=== PATIENT | male | born 1995 | race Hispanic/Latino ===

== ENCOUNTER 2022-01-19 09:14 | Inpatient (IN) | payer BC ==
[2022-01-19] MEDS ORDERED: Dexamethasone 10 MG/ML VIAL SLOW IVP SCH ×2 (11:00→11:30)
[2022-01-19] MEDS ORDERED: PALONOSETRON HCL 0.05 MG/ML 5 ML VIAL IVP SCH (11:00)
[2022-01-19] MEDS ORDERED: CISPLATIN IV SCH (11:15)
[2022-01-19] MEDS ORDERED: ETOPOSIDE IVPB SCH (11:15)
[2022-01-19] MEDS ORDERED: IFOSFAMIDE IVPB SCH (11:15)
[2022-01-19] MEDS ORDERED: SODIUM CHLORIDE 0.9% IV SCH (11:15)
[2022-01-19] MEDS ORDERED: SODIUM CHLORIDE 0.9% IVPB SCH ×4 (11:15→12:00)
[2022-01-19] MEDS ORDERED: MESNA IVPB SCH ×2 (11:15→12:00)
[2022-01-19] MEDS ORDERED: MANNITOL IV SCH (11:15)
[2022-01-19] MEDS ORDERED: Acetaminophen 650 MG Suppository PR PRN (11:16)
[2022-01-19] MEDS ORDERED: Ondansetron PF 4 MG/2 ML Vial IVP PRN (11:16)
[2022-01-19] MEDS ORDERED: Ondansetron ODT 4 MG TAB PO PRN (11:16)
[2022-01-19] MEDS ORDERED: Acetaminophen 325 MG TAB PO PRN (11:16)
[2022-01-19] MEDS ORDERED: Morphine 4 MG/ML VIAL SLOW IVP PRN (11:18)
[2022-01-19 11:25] VITALS: BMI 25.4
[2022-01-19] MEDS ORDERED: PEGFILGRASTIM-JMDB 6 MG/0.6 ML SYRINGE SQ SCH (11:30)
[2022-01-19] MEDS ORDERED: Ondansetron PF 4 MG/2 ML Vial IVP SCH ×2 (11:30)
[2022-01-19] MEDS ORDERED: Dexamethasone Sod Phosphate 20 MG in Sodium Chloride 0.9% 50 ML IVPB SCH (11:45)
[2022-01-19 12:04] LABS: #Eosinphils 0.1 thou/uL (0.0-0.7); #Lymphocytes 1.4 thou/uL (1.20-3.40); #Monocytes 0.1 thou/uL (0.11-0.59); #Neutrophils 10.3 thou/uL (1.40-6.50); %Basophils 0.1 % (0.0-1.0); %Eosinophils 1.1 % (0.0-10.0); %Lymphocytes 11.7 % (21.0-51.0); %Monocytes 0.8 % (0.0-10.0); %Neutrophils 86.3 % (42.0-75.0); Hemoglobin 13.7 g/dL (14.0-18.0); Mean Corpuscular HGB CONC 32.3 g/dL (32.0-36.0); Mean Corpuscular Hemoglobin 30.3 pg (27.0-31.0); Mean Corpuscular Volume 93.9 fL (78.0-98.0); Mean Platelet Volume 7.8 fL (7.4-10.4); Platelet Count 212 thou/uL (130-400); RBC Distribution Width 16.5 % (11.5-14.5); Red Blood Cell (RBC) Count 4.53 mill/uL (4.70-6.10); White Blood Cell (WBC) Count 11.9 thou/uL (4.8-10.8)
[2022-01-19 12:19] LABS: Anion Gap 13 mmol/L (10-20); BUN (Urea Nitrogen) 11 mg/dL (8.9-20.6); Calc. Creatinine Clearance 177 mL/min (70-130); Calcium 9.2 mg/dL (7.8-10.44); Carbon Dioxide 22 mmol/L (22-29); Glucose 157 mg/dL (70-105); Sodium 136 mmol/L (136-145)
[2022-01-19 12:20] LABS: Chloride 105 mmol/L (98-107)
[2022-01-19] MEDS: SODIUM CHLORIDE 0.9% IV SCH (14:55)
[2022-01-19] MEDS: MANNITOL IV SCH (14:55)
[2022-01-19] MEDS: CISPLATIN IV SCH (14:55)
[2022-01-19] MEDS: SODIUM CHLORIDE 0.9% IVPB SCH ×2 (16:26→17:35)
[2022-01-19] MEDS: ETOPOSIDE IVPB SCH (16:26)
[2022-01-19] MEDS: MESNA IVPB SCH (17:35)
[2022-01-19] MEDS: IFOSFAMIDE IVPB SCH (17:35)
[2022-01-20] MEDS: SODIUM CHLORIDE 0.9% IVPB SCH ×5 (00:02→23:25)
[2022-01-20] MEDS: MESNA IVPB SCH ×4 (00:02→23:25)
[2022-01-20 07:05] LABS: ALT (SGPT) 26 U/L (8-55); AST (SGOT) 10 U/L (5-34); Albumin 3.6 g/dL (3.5-5.0); Alkaline Phosphatase 93 U/L (40-110); Anion Gap 11 mmol/L (10-20); BUN (Urea Nitrogen) 10 mg/dL (8.9-20.6); Bilirubin, Total 0.7 mg/dL (0.2-1.2); Calc. Creatinine Clearance 184 mL/min (70-130); Calcium 8.4 mg/dL (7.8-10.44); Carbon Dioxide 24 mmol/L (22-29); Chloride 107 mmol/L (98-107); Globulin 2.8 g/dL (2.4-3.5); Glucose 122 mg/dL (70-105); Potassium 3.8 mmol/L (3.5-5.1); Protein, Total 6.4 g/dL (6.0-8.3); Sodium 138 mmol/L (136-145)
[2022-01-20 10:58] LABS: Hemoglobin 13.7 g/dL (14.0-18.0); Mean Corpuscular HGB CONC 32.6 g/dL (32.0-36.0); Mean Corpuscular Hemoglobin 30.6 pg (27.0-31.0); Mean Corpuscular Volume 94.1 fL (78.0-98.0); Mean Platelet Volume 7.8 fL (7.4-10.4); Platelet Count 241 thou/uL (130-400); RBC Distribution Width 16.6 % (11.5-14.5); Red Blood Cell (RBC) Count 4.46 mill/uL (4.70-6.10); White Blood Cell (WBC) Count 22.2 thou/uL (4.8-10.8)
[2022-01-20 11:12] LABS: Anion Gap 12 mmol/L (10-20); BUN (Urea Nitrogen) 10 mg/dL (8.9-20.6); Calc. Creatinine Clearance 189 mL/min (70-130); Calcium 8.7 mg/dL (7.8-10.44); Carbon Dioxide 24 mmol/L (22-29); Chloride 106 mmol/L (98-107); Glucose 111 mg/dL (70-105); Potassium 3.9 mmol/L (3.5-5.1); Sodium 138 mmol/L (136-145)
[2022-01-20 11:28] LABS: Band 2 % (5-11); Lymphocytes 5 % (21-51); MDiff Complete? YES; Monocytes 3 % (0-10); Neutrophil 90 % (42-75); RBC Morphology Normal
[2022-01-20] MEDS ORDERED: ETOPOSIDE IVPB SCH (12:00)
[2022-01-20] MEDS ORDERED: CISPLATIN IV SCH (12:00)
[2022-01-20] MEDS ORDERED: SODIUM CHLORIDE 0.9% IVPB SCH (12:00)
[2022-01-20] MEDS ORDERED: SODIUM CHLORIDE 0.9% IV SCH (12:00)
[2022-01-20] MEDS ORDERED: MANNITOL IV SCH (12:00)
[2022-01-20] MEDS: Dexamethasone Sod Phosphate 20 MG, Ondansetron 2MG/ML MDV 10 MG in Sodium Chloride 0.9%... IVPB SCH (12:05)
[2022-01-20] MEDS: MANNITOL IV SCH (13:03)
[2022-01-20] MEDS: CISPLATIN IV SCH (13:03)
[2022-01-20] MEDS: SODIUM CHLORIDE 0.9% IV SCH (13:03)
[2022-01-20] MEDS: ETOPOSIDE IVPB SCH (14:43)
[2022-01-20] MEDS: IFOSFAMIDE IVPB SCH (16:52)
[2022-01-21] MEDS ORDERED: Ondansetron PF 4 MG/2 ML Vial IVP SCH (01:30)
[2022-01-21] MEDS: SODIUM CHLORIDE 0.9% IVPB SCH ×4 (03:27→22:51)
[2022-01-21] MEDS: MESNA IVPB SCH ×3 (03:27→22:51)
[2022-01-21 05:41] LABS: ALT (SGPT) 23 U/L (8-55); AST (SGOT) 9 U/L (5-34); Albumin 3.5 g/dL (3.5-5.0); Alkaline Phosphatase 96 U/L (40-110); Anion Gap 11 mmol/L (10-20); BUN (Urea Nitrogen) 11 mg/dL (8.9-20.6); Bilirubin, Total 0.5 mg/dL (0.2-1.2); Calc. Creatinine Clearance 184 mL/min (70-130); Calcium 8.2 mg/dL (7.8-10.44); Carbon Dioxide 24 mmol/L (22-29); Chloride 108 mmol/L (98-107); Globulin 2.5 g/dL (2.4-3.5); Glucose 123 mg/dL (70-105); Potassium 3.8 mmol/L (3.5-5.1); Sodium 139 mmol/L (136-145)
[2022-01-21] MEDS: Dexamethasone Sod Phosphate 20 MG, Ondansetron 2MG/ML MDV 10 MG in Sodium Chloride 0.9%... IVPB SCH (10:18)
[2022-01-21] MEDS: SODIUM CHLORIDE 0.9% IV SCH (11:00)
[2022-01-21] MEDS: CISPLATIN IV SCH (11:00)
[2022-01-21] MEDS: MANNITOL IV SCH (11:00)
[2022-01-21] MEDS ORDERED: SODIUM CHLORIDE 0.9% IVPB SCH (12:00)
[2022-01-21] MEDS ORDERED: SODIUM CHLORIDE 0.9% IV SCH (12:00)
[2022-01-21] MEDS ORDERED: ETOPOSIDE IVPB SCH (12:00)
[2022-01-21] MEDS ORDERED: MANNITOL IV SCH (12:00)
[2022-01-21] MEDS ORDERED: CISPLATIN IV SCH (12:00)
[2022-01-21] MEDS: ETOPOSIDE IVPB SCH (12:37)
[2022-01-21] MEDS: IFOSFAMIDE IVPB SCH (16:18)
[2022-01-22] MEDS: SODIUM CHLORIDE 0.9% IVPB SCH ×4 (02:54→21:34)
[2022-01-22] MEDS: MESNA IVPB SCH ×3 (02:54→21:34)
[2022-01-22 05:11] LABS: Anion Gap 5 mmol/L (10-20); BUN (Urea Nitrogen) 11 mg/dL (8.9-20.6); Calc. Creatinine Clearance 279 mL/min (70-130); Calcium 5.5 mg/dL (7.8-10.44); Carbon Dioxide 20 mmol/L (22-29); Chloride 118 mmol/L (98-107); Glucose 65 mg/dL (70-105); Potassium 2.5 mmol/L (3.5-5.1); Sodium 140 mmol/L (136-145)
[2022-01-22 05:17] LABS: #Lymphocytes 1.6 thou/uL (1.20-3.40); #Monocytes 1.1 thou/uL (0.11-0.59); #Neutrophils 6.3 thou/uL (1.40-6.50); %Basophils 0.1 % (0.0-1.0); %Eosinophils 0.1 % (0.0-10.0); %Lymphocytes 17.5 % (21.0-51.0); %Monocytes 11.7 % (0.0-10.0); %Neutrophils 70.6 % (42.0-75.0); Hemoglobin 10.8 g/dL (14.0-18.0); Mean Corpuscular HGB CONC 34.8 g/dL (32.0-36.0); Mean Corpuscular Hemoglobin 33.5 pg (27.0-31.0); Mean Corpuscular Volume 96.3 fL (78.0-98.0); Mean Platelet Volume 8.1 fL (7.4-10.4); Platelet Count 193 thou/uL (130-400); RBC Distribution Width 16.8 % (11.5-14.5); Red Blood Cell (RBC) Count 3.22 mill/uL (4.70-6.10)
[2022-01-22 06:07] LABS: #Neutrophils 7.5 thou/uL (1.40-6.50); %Basophils 0.2 % (0.0-1.0); %Eosinophils 0.1 % (0.0-10.0); %Lymphocytes 19.1 % (21.0-51.0); %Monocytes 9.8 % (0.0-10.0); %Neutrophils 70.8 % (42.0-75.0); Hemoglobin 13.7 g/dL (14.0-18.0); Mean Corpuscular HGB CONC 35.1 g/dL (32.0-36.0); Mean Corpuscular Hemoglobin 33.5 pg (27.0-31.0); Mean Corpuscular Volume 95.2 fL (78.0-98.0); Mean Platelet Volume 8.2 fL (7.4-10.4); Platelet Count 237 thou/uL (130-400); RBC Distribution Width 17.1 % (11.5-14.5); Red Blood Cell (RBC) Count 4.11 mill/uL (4.70-6.10); White Blood Cell (WBC) Count 10.5 thou/uL (4.8-10.8)
[2022-01-22 06:18] LABS: ALT (SGPT) 21 U/L (8-55); AST (SGOT) 11 U/L (5-34); Albumin 3.4 g/dL (3.5-5.0); Alkaline Phosphatase 84 U/L (40-110); Anion Gap 12 mmol/L (10-20); BUN (Urea Nitrogen) 15 mg/dL (8.9-20.6); Bilirubin, Total 0.6 mg/dL (0.2-1.2); Calc. Creatinine Clearance 177 mL/min (70-130); Calcium 8.3 mg/dL (7.8-10.44); Carbon Dioxide 23 mmol/L (22-29); Chloride 106 mmol/L (98-107); Globulin 2.4 g/dL (2.4-3.5); Glucose 87 mg/dL (70-105); Potassium 3.9 mmol/L (3.5-5.1); Protein, Total 5.8 g/dL (6.0-8.3); Sodium 137 mmol/L (136-145)
[2022-01-22] MEDS: Dexamethasone Sod Phosphate 20 MG, Ondansetron 2MG/ML MDV 10 MG in Sodium Chloride 0.9%... IVPB SCH (11:26)
[2022-01-22] MEDS ORDERED: MANNITOL IV SCH (12:00)
[2022-01-22] MEDS ORDERED: CISPLATIN IV SCH (12:00)
[2022-01-22] MEDS ORDERED: ETOPOSIDE IVPB SCH (12:00)
[2022-01-22] MEDS ORDERED: SODIUM CHLORIDE 0.9% IV SCH (12:00)
[2022-01-22] MEDS ORDERED: SODIUM CHLORIDE 0.9% IVPB SCH (12:00)
[2022-01-22] MEDS: CISPLATIN IV SCH (12:12)
[2022-01-22] MEDS: SODIUM CHLORIDE 0.9% IV SCH (12:12)
[2022-01-22] MEDS: MANNITOL IV SCH (12:12)
[2022-01-22] MEDS: ETOPOSIDE IVPB SCH (13:40)
[2022-01-22] MEDS: IFOSFAMIDE IVPB SCH (14:56)
[2022-01-23] MEDS: MESNA IVPB SCH ×4 (01:46→23:51)
[2022-01-23] MEDS: SODIUM CHLORIDE 0.9% IVPB SCH ×5 (01:46→23:51)
[2022-01-23 05:35] LABS: #Lymphocytes 1.6 thou/uL (1.20-3.40); #Monocytes 0.6 thou/uL (0.11-0.59); #Neutrophils 5.3 thou/uL (1.40-6.50); %Eosinophils 0.1 % (0.0-10.0); %Monocytes 7.4 % (0.0-10.0); %Neutrophils 71.4 % (42.0-75.0); Hemoglobin 13.6 g/dL (14.0-18.0); Mean Corpuscular HGB CONC 33.2 g/dL (32.0-36.0); Mean Corpuscular Volume 93.5 fL (78.0-98.0); Mean Platelet Volume 7.9 fL (7.4-10.4); Platelet Count 281 thou/uL (130-400); RBC Distribution Width 16.8 % (11.5-14.5); White Blood Cell (WBC) Count 7.5 thou/uL (4.8-10.8)
[2022-01-23 05:54] LABS: Anion Gap 12 mmol/L (10-20); BUN (Urea Nitrogen) 21 mg/dL (8.9-20.6); Calc. Creatinine Clearance 172 mL/min (70-130); Calcium 8.9 mg/dL (7.8-10.44); Carbon Dioxide 25 mmol/L (22-29); Chloride 101 mmol/L (98-107); Glucose 94 mg/dL (70-105); Sodium 134 mmol/L (136-145)
[2022-01-23] MEDS: Dexamethasone Sod Phosphate 20 MG, Ondansetron 2MG/ML MDV 10 MG in Sodium Chloride 0.9%... IVPB SCH (09:01)
[2022-01-23] MEDS: CISPLATIN IV SCH (10:26)
[2022-01-23] MEDS: MANNITOL IV SCH (10:26)
[2022-01-23] MEDS: SODIUM CHLORIDE 0.9% IV SCH (10:26)
[2022-01-23] MEDS ORDERED: SODIUM CHLORIDE 0.9% IVPB SCH (12:00)
[2022-01-23] MEDS ORDERED: ETOPOSIDE IVPB SCH (12:00)
[2022-01-23] MEDS ORDERED: CISPLATIN IV SCH (12:00)
[2022-01-23] MEDS ORDERED: SODIUM CHLORIDE 0.9% IV SCH (12:00)
[2022-01-23] MEDS ORDERED: MANNITOL IV SCH (12:00)
[2022-01-23] MEDS: ETOPOSIDE IVPB SCH (12:21)
[2022-01-23] MEDS: IFOSFAMIDE IVPB SCH (13:47)
[2022-01-24 05:28] LABS: Band 1 % (5-11); Lymphocytes 39 % (21-51); MDiff Complete? YES; Mean Corpuscular HGB CONC 33.9 g/dL (32.0-36.0); Mean Corpuscular Volume 94.4 fL (78.0-98.0); Mean Platelet Volume 8.2 fL (7.4-10.4); Monocytes 3 % (0-10); Neutrophil 57 % (42-75); Platelet Count 289 thou/uL (130-400); Platelet Morphology Comment Appears Adequate; RBC Distribution Width 16.9 % (11.5-14.5); RBC Morphology Normal; Red Blood Cell (RBC) Count 4.36 mill/uL (4.70-6.10); White Blood Cell (WBC) Count 7.5 thou/uL (4.8-10.8)
[2022-01-24] MEDS ORDERED: PEGFILGRASTIM-JMDB 6 MG/0.6 ML SYRINGE SQ SCH (07:00)
[2022-01-24 07:01] LABS: ALT (SGPT) 21 U/L (8-55); AST (SGOT) 10 U/L (5-34); Albumin 3.6 g/dL (3.5-5.0); Alkaline Phosphatase 75 U/L (40-110); Anion Gap 12 mmol/L (10-20); BUN (Urea Nitrogen) 21 mg/dL (8.9-20.6); Bilirubin, Total 0.9 mg/dL (0.2-1.2); Calc. Creatinine Clearance 175 mL/min (70-130); Calcium 8.7 mg/dL (7.8-10.44); Carbon Dioxide 25 mmol/L (22-29); Chloride 102 mmol/L (98-107); Globulin 2.7 g/dL (2.4-3.5); Glucose 83 mg/dL (70-105); Potassium 3.9 mmol/L (3.5-5.1); Protein, Total 6.3 g/dL (6.0-8.3); Sodium 135 mmol/L (136-145)
[2022-01-24 12:35] VITALS: BP 115/73; TEMP 98
== END 2022-01-24 16:49 | disposition home or self-care (01) | DRG 847 ==
LOC: MSONC 10:12
PROVIDERS: ADMIT Internal Medicine; ATTEND Internal Medicine
DX: Z51.11 Encounter for antineoplastic chemotherapy (principal); C78.7 Secondary malignant neoplasm of liver and intrahepatic bile duct; C78.00 Secondary malignant neoplasm of unspecified lung; C77.2 Secondary and unspecified malignant neoplasm of intra-abdominal lymph nodes; C62.11 Malignant neoplasm of descended right testis; R11.0 Nausea; E87.6 Hypokalemia; E83.51 Hypocalcemia; Z79.899 Other long term (current) drug therapy; Z90.49 Acquired absence of other specified parts of digestive tract; Z80.0 Family history of malignant neoplasm of digestive organs; Z87.891 Personal history of nicotine dependence
CPT/HCPCS: 36415; 80048; 80053; 85025; J1100; J1453; J1642; J2150; J2405; J2469; J3490; J7030; J7050; J9060; J9181; J9208; J9209; Q5108

== ENCOUNTER 2022-02-10 08:13 | Inpatient (IN) | payer BC ==
[~2022-02-10 08:13] MED LIST: CISPLATIN IV SCH; MANNITOL IV SCH; PALONOSETRON HCL 0.05 MG/ML 5 ML VIAL IVP SCH; SODIUM CHLORIDE 0.9% IV SCH
[2022-02-10] MEDS ORDERED: Acetaminophen 325 MG TAB PO PRN (13:30)
[2022-02-10] MEDS ORDERED: Senokot S 8.6-50 MG TAB PO PRN (13:30)
[2022-02-10] MEDS ORDERED: Calcium Carbonate 500 MG ChewTAB PO PRN (13:30)
[2022-02-10] MEDS ORDERED: Ondansetron ODT 4 MG TAB PO PRN (13:30)
[2022-02-10] MEDS ORDERED: Ondansetron PF 4 MG/2 ML Vial IVP PRN (13:30)
[2022-02-10 14:15] VITALS: BMI 25.4
[2022-02-10] MEDS ORDERED: IFOSFAMIDE IVPB SCH (14:30)
[2022-02-10] MEDS ORDERED: MESNA IVPB SCH ×2 (14:30)
[2022-02-10] MEDS ORDERED: SODIUM CHLORIDE 0.9% IVPB SCH ×2 (14:30)
[2022-02-10] MEDS ORDERED: Dexamethasone Sod Phosphate 20 MG in Sodium Chloride 0.9% 50 ML IVPB SCH (14:30)
[2022-02-10 14:42] LABS: #Eosinphils 0.1 thou/uL (0.0-0.7); #Lymphocytes 1.9 thou/uL (1.20-3.40); #Monocytes 0.7 thou/uL (0.11-0.59); #Neutrophils 4.8 thou/uL (1.40-6.50); %Basophils 0.4 % (0.0-1.0); %Eosinophils 1.4 % (0.0-10.0); %Lymphocytes 25.3 % (21.0-51.0); %Monocytes 9.2 % (0.0-10.0); %Neutrophils 63.7 % (42.0-75.0); Hemoglobin 13.5 g/dL (14.0-18.0); Mean Corpuscular HGB CONC 33.9 g/dL (32.0-36.0); Mean Corpuscular Hemoglobin 31.3 pg (27.0-31.0); Mean Corpuscular Volume 92.5 fL (78.0-98.0); Mean Platelet Volume 7.9 fL (7.4-10.4); Platelet Count 213 thou/uL (130-400); RBC Distribution Width 18.5 % (11.5-14.5); Red Blood Cell (RBC) Count 4.32 mill/uL (4.70-6.10); White Blood Cell (WBC) Count 7.6 thou/uL (4.8-10.8)
[2022-02-10 15:14] LABS: ALT (SGPT) 22 U/L (8-55); AST (SGOT) 15 U/L (5-34); Albumin 4.2 g/dL (3.5-5.0); Alkaline Phosphatase 96 U/L (40-110); Anion Gap 12 mmol/L (10-20); BUN (Urea Nitrogen) 12 mg/dL (8.9-20.6); Bilirubin, Total 0.4 mg/dL (0.2-1.2); Calc. Creatinine Clearance 153 mL/min (70-130); Calcium 9.3 mg/dL (7.8-10.44); Carbon Dioxide 26 mmol/L (22-29); Chloride 103 mmol/L (98-107); Globulin 3.2 g/dL (2.4-3.5); Glucose 125 mg/dL (70-105); Magnesium 1.5 mg/dL (1.6-2.6); Phosphorus 3.3 mg/dL (2.3-4.7); Potassium 3.9 mmol/L (3.5-5.1); Protein, Total 7.4 g/dL (6.0-8.3); Sodium 137 mmol/L (136-145)
[2022-02-10] MEDS ORDERED: Magnesium 2 GM/50 ML(in water) 2 GM in Premix Bag 1 BAG IVPB SCH (16:30)
[2022-02-10] MEDS ORDERED: Electrolyte Replacement Protocol 1 EACH FS SCH (16:30)
[2022-02-10] MEDS: SODIUM CHLORIDE 0.9% IV SCH (16:44)
[2022-02-10] MEDS: MANNITOL IV SCH (16:44)
[2022-02-10] MEDS: CISPLATIN IV SCH (16:44)
[2022-02-10] MEDS: SODIUM CHLORIDE 0.9% IVPB SCH ×2 (18:19→19:58)
[2022-02-10] MEDS: ETOPOSIDE IVPB SCH (18:19)
[2022-02-10] MEDS: IFOSFAMIDE IVPB SCH (19:58)
[2022-02-10] MEDS: MESNA IVPB SCH (19:58)
[2022-02-11] MEDS: MESNA IVPB SCH ×4 (02:26→22:20)
[2022-02-11] MEDS: SODIUM CHLORIDE 0.9% IVPB SCH ×5 (02:26→22:20)
[2022-02-11 06:06] LABS: ALT (SGPT) 22 U/L (8-55); AST (SGOT) 13 U/L (5-34); Albumin 4.3 g/dL (3.5-5.0); Alkaline Phosphatase 107 U/L (40-110); Anion Gap 13 mmol/L (10-20); BUN (Urea Nitrogen) 14 mg/dL (8.9-20.6); Bilirubin, Total 0.6 mg/dL (0.2-1.2); Calc. Creatinine Clearance 166 mL/min (70-130); Calcium 9.4 mg/dL (7.8-10.44); Carbon Dioxide 23 mmol/L (22-29); Chloride 106 mmol/L (98-107); Globulin 3.3 g/dL (2.4-3.5); Glucose 157 mg/dL (70-105); Potassium 4.7 mmol/L (3.5-5.1); Protein, Total 7.6 g/dL (6.0-8.3); Sodium 137 mmol/L (136-145)
[2022-02-11 06:51] LABS: #Eosinphils 0.1 thou/uL (0.0-0.7); #Lymphocytes 1.1 thou/uL (1.20-3.40); #Monocytes 0.1 thou/uL (0.11-0.59); #Neutrophils 12.5 thou/uL (1.40-6.50); %Basophils 0.1 % (0.0-1.0); %Eosinophils 0.4 % (0.0-10.0); %Lymphocytes 7.9 % (21.0-51.0); %Monocytes 0.5 % (0.0-10.0); Hemoglobin 13.3 g/dL (14.0-18.0); Mean Corpuscular HGB CONC 32.7 g/dL (32.0-36.0); Mean Corpuscular Hemoglobin 31.3 pg (27.0-31.0); Mean Corpuscular Volume 95.9 fL (78.0-98.0); Mean Platelet Volume 8.3 fL (7.4-10.4); Platelet Count 227 thou/uL (130-400); RBC Distribution Width 18.2 % (11.5-14.5); Red Blood Cell (RBC) Count 4.25 mill/uL (4.70-6.10); White Blood Cell (WBC) Count 13.7 thou/uL (4.8-10.8)
[2022-02-11] MEDS ORDERED: Magnesium 2 GM/50 ML(in water) 2 GM in Premix Bag 1 BAG IVPB SCH (08:00)
[2022-02-11] MEDS: Ondansetron 2MG/ML MDV 10 MG, Dexamethasone Sod Phosphate 20 MG in Sodium Chloride 0.9%... IVPB SCH (12:55)
[2022-02-11] MEDS: MANNITOL IV SCH (13:43)
[2022-02-11] MEDS: SODIUM CHLORIDE 0.9% IV SCH (13:43)
[2022-02-11] MEDS: CISPLATIN IV SCH (13:43)
[2022-02-11] MEDS: ETOPOSIDE IVPB SCH (15:01)
[2022-02-11] MEDS: IFOSFAMIDE IVPB SCH (16:17)
[2022-02-12] MEDS: MESNA IVPB SCH ×3 (02:28→20:11)
[2022-02-12] MEDS: SODIUM CHLORIDE 0.9% IVPB SCH ×4 (02:28→20:11)
[2022-02-12 05:50] LABS: #Lymphocytes 0.9 thou/uL (1.20-3.40); #Neutrophils 13.3 thou/uL (1.40-6.50); %Basophils 0.1 % (0.0-1.0); %Eosinophils 0.2 % (0.0-10.0); %Lymphocytes 6.1 % (21.0-51.0); %Monocytes 6.4 % (0.0-10.0); %Neutrophils 87.2 % (42.0-75.0); Hemoglobin 12.8 g/dL (14.0-18.0); Mean Corpuscular HGB CONC 33.6 g/dL (32.0-36.0); Mean Corpuscular Hemoglobin 31.3 pg (27.0-31.0); Mean Corpuscular Volume 93.2 fL (78.0-98.0); Mean Platelet Volume 8.1 fL (7.4-10.4); Platelet Count 258 thou/uL (130-400); RBC Distribution Width 18.9 % (11.5-14.5); Red Blood Cell (RBC) Count 4.09 mill/uL (4.70-6.10); White Blood Cell (WBC) Count 15.3 thou/uL (4.8-10.8)
[2022-02-12 06:16] LABS: ALT (SGPT) 17 U/L (8-55); AST (SGOT) 10 U/L (5-34); Alkaline Phosphatase 93 U/L (40-110); Anion Gap 11 mmol/L (10-20); BUN (Urea Nitrogen) 15 mg/dL (8.9-20.6); Bilirubin, Total 0.3 mg/dL (0.2-1.2); Calc. Creatinine Clearance 162 mL/min (70-130); Carbon Dioxide 25 mmol/L (22-29); Chloride 106 mmol/L (98-107); Globulin 2.9 g/dL (2.4-3.5); Glucose 127 mg/dL (70-105); Potassium 4.1 mmol/L (3.5-5.1); Protein, Total 6.9 g/dL (6.0-8.3); Sodium 138 mmol/L (136-145)
[2022-02-12] MEDS: Ondansetron 2MG/ML MDV 10 MG, Dexamethasone Sod Phosphate 20 MG in Sodium Chloride 0.9%... IVPB SCH (10:50)
[2022-02-12] MEDS: MANNITOL IV SCH (11:30)
[2022-02-12] MEDS: SODIUM CHLORIDE 0.9% IV SCH (11:30)
[2022-02-12] MEDS: CISPLATIN IV SCH (11:30)
[2022-02-12] MEDS: ETOPOSIDE IVPB SCH (12:51)
[2022-02-12] MEDS: IFOSFAMIDE IVPB SCH (13:58)
[2022-02-13 07:00] LABS: #Lymphocytes 1.4 thou/uL (1.20-3.40); #Monocytes 1.1 thou/uL (0.11-0.59); #Neutrophils 5.5 thou/uL (1.40-6.50); %Basophils 0.5 % (0.0-1.0); %Eosinophils 0.4 % (0.0-10.0); %Lymphocytes 17.4 % (21.0-51.0); %Monocytes 13.4 % (0.0-10.0); %Neutrophils 68.3 % (42.0-75.0); Hemoglobin 12.3 g/dL (14.0-18.0); Mean Corpuscular HGB CONC 32.5 g/dL (32.0-36.0); Mean Corpuscular Hemoglobin 31.2 pg (27.0-31.0); Mean Corpuscular Volume 95.9 fL (78.0-98.0); Mean Platelet Volume 8.6 fL (7.4-10.4); Platelet Count 230 thou/uL (130-400); RBC Distribution Width 18.9 % (11.5-14.5); Red Blood Cell (RBC) Count 3.93 mill/uL (4.70-6.10)
[2022-02-13 07:16] LABS: ALT (SGPT) 15 U/L (8-55); AST (SGOT) 7 U/L (5-34); Albumin 3.7 g/dL (3.5-5.0); Alkaline Phosphatase 76 U/L (40-110); Anion Gap 10 mmol/L (10-20); BUN (Urea Nitrogen) 17 mg/dL (8.9-20.6); Bilirubin, Total 0.3 mg/dL (0.2-1.2); Calc. Creatinine Clearance 176 mL/min (70-130); Calcium 8.9 mg/dL (7.8-10.44); Carbon Dioxide 26 mmol/L (22-29); Chloride 105 mmol/L (98-107); Globulin 2.7 g/dL (2.4-3.5); Glucose 98 mg/dL (70-105); Potassium 3.8 mmol/L (3.5-5.1); Protein, Total 6.4 g/dL (6.0-8.3); Sodium 137 mmol/L (136-145)
[2022-02-13] MEDS: Ondansetron 2MG/ML MDV 10 MG, Dexamethasone Sod Phosphate 20 MG in Sodium Chloride 0.9%... IVPB SCH (09:23)
[2022-02-13] MEDS: CISPLATIN IV SCH (10:44)
[2022-02-13] MEDS: SODIUM CHLORIDE 0.9% IV SCH (10:44)
[2022-02-13] MEDS: MANNITOL IV SCH (10:44)
[2022-02-13] MEDS: ETOPOSIDE IVPB SCH (11:58)
[2022-02-13] MEDS: SODIUM CHLORIDE 0.9% IVPB SCH ×5 (11:58→23:30)
[2022-02-13] MEDS: MESNA IVPB SCH ×4 (13:06→23:30)
[2022-02-13] MEDS: IFOSFAMIDE IVPB SCH (13:06)
[2022-02-14 06:23] LABS: Hemoglobin 12.8 g/dL (14.0-18.0); Mean Corpuscular HGB CONC 33.3 g/dL (32.0-36.0); Mean Corpuscular Hemoglobin 31.7 pg (27.0-31.0); Mean Corpuscular Volume 95.2 fL (78.0-98.0); Mean Platelet Volume 8.5 fL (7.4-10.4); Platelet Count 261 thou/uL (130-400); RBC Distribution Width 18.7 % (11.5-14.5); Red Blood Cell (RBC) Count 4.03 mill/uL (4.70-6.10); White Blood Cell (WBC) Count 5.1 thou/uL (4.8-10.8)
[2022-02-14 06:39] LABS: #Lymphocytes 1.6 thou/uL (1.20-3.40); #Monocytes 0.6 thou/uL (0.11-0.59); #Neutrophils 2.9 thou/uL (1.40-6.50); %Basophils 0.2 % (0.0-1.0); %Eosinophils 0.2 % (0.0-10.0); %Lymphocytes 31.1 % (21.0-51.0); %Monocytes 11.8 % (0.0-10.0); %Neutrophils 56.7 % (42.0-75.0)
[2022-02-14 06:46] LABS: ALT (SGPT) 13 U/L (8-55); AST (SGOT) 8 U/L (5-34); Albumin 3.8 g/dL (3.5-5.0); Alkaline Phosphatase 78 U/L (40-110); Anion Gap 10 mmol/L (10-20); BUN (Urea Nitrogen) 22 mg/dL (8.9-20.6); Bilirubin, Total 0.6 mg/dL (0.2-1.2); Calc. Creatinine Clearance 162 mL/min (70-130); Calcium 8.8 mg/dL (7.8-10.44); Carbon Dioxide 28 mmol/L (22-29); Chloride 102 mmol/L (98-107); Globulin 2.9 g/dL (2.4-3.5); Glucose 99 mg/dL (70-105); Potassium 3.6 mmol/L (3.5-5.1); Protein, Total 6.7 g/dL (6.0-8.3); Sodium 136 mmol/L (136-145)
[2022-02-14] MEDS: Ondansetron 2MG/ML MDV 10 MG, Dexamethasone Sod Phosphate 20 MG in Sodium Chloride 0.9%... IVPB SCH (08:58)
[2022-02-14] MEDS: SODIUM CHLORIDE 0.9% IV SCH (10:18)
[2022-02-14] MEDS: MANNITOL IV SCH (10:18)
[2022-02-14] MEDS: CISPLATIN IV SCH (10:18)
[2022-02-14] MEDS: ETOPOSIDE IVPB SCH (12:00)
[2022-02-14] MEDS: SODIUM CHLORIDE 0.9% IVPB SCH ×4 (12:00→23:55)
[2022-02-14] MEDS: IFOSFAMIDE IVPB SCH (13:41)
[2022-02-14] MEDS: MESNA IVPB SCH ×3 (13:41→23:55)
[2022-02-14 20:44] VITALS: BP 127/79; TEMP 97.3
[2022-02-15] MEDS ORDERED: PEGFILGRASTIM-JMDB 6 MG/0.6 ML SYRINGE SQ SCH (06:00)
== END 2022-02-15 01:16 | disposition home or self-care (01) | DRG 847 ==
LOC: MSONC 13:03
PROVIDERS: ADMIT Family Medicine; ATTEND Family Medicine
DX: Z51.11 Encounter for antineoplastic chemotherapy (principal); Z20.822 Contact with and (suspected) exposure to COVID-19; C78.7 Secondary malignant neoplasm of liver and intrahepatic bile duct; C78.00 Secondary malignant neoplasm of unspecified lung; C78.6 Secondary malignant neoplasm of retroperitoneum and peritoneum; C77.5 Secondary and unspecified malignant neoplasm of intrapelvic lymph nodes; C62.11 Malignant neoplasm of descended right testis; G89.3 Neoplasm related pain (acute) (chronic); Z79.899 Other long term (current) drug therapy; Z79.891 Long term (current) use of opiate analgesic; Z90.89 Acquired absence of other organs
CPT/HCPCS: 80053; 83735; 84100; 85025; J1100; J1453; J1642; J2150; J2405; J2469; J3475; J3490; J7030; J7050; J9060; J9181; J9208; J9209; U0003; U0005

== ENCOUNTER 2022-02-16 15:15 | Day surgery (SDC) | payer BC ==
[2022-02-16] MEDS ORDERED: PEGFILGRASTIM-JMDB 6 MG/0.6 ML SYRINGE ONE (15:26)
== END 2022-02-16 15:29 | disposition home or self-care (01) ==
LOC: ONC/OP 15:15
PROVIDERS: ATTEND Internal Medicine
DX: Z76.89 Persons encountering health services in other specified circumstances (principal); C62.11 Malignant neoplasm of descended right testis
CPT/HCPCS: 96372; Q5108

== ENCOUNTER 2022-03-02 11:12 | Inpatient (IN) | payer BC ==
[2022-03-02 11:36] VITALS: BMI 25.7
[2022-03-02] MEDS ORDERED: Senokot S 8.6-50 MG TAB PO PRN (11:44)
[2022-03-02] MEDS ORDERED: Bisacodyl 5 MG TAB PO PRN (11:44)
[2022-03-02] MEDS ORDERED: Bisacodyl 10 MG SUPP PR PRN (11:44)
[2022-03-02] MEDS ORDERED: Ondansetron ODT 4 MG TAB PO PRN ×2 (11:44→12:26)
[2022-03-02] MEDS ORDERED: Palonosetron HCl 0.25 MG in Sodium Chloride 0.9% 50 ML IVPB SCH (11:45)
[2022-03-02] MEDS ORDERED: Dexamethasone 20 MG in Sodium Chloride 0.9% 50 ML IVPB SCH (11:45)
[2022-03-02] MEDS ORDERED: Fosaprepitant Dimeglumine 150 MG in Sodium Chloride 0.9% 250 ML 150 ML IVPB SCH (11:45)
[2022-03-02] MEDS ORDERED: SODIUM CHLORIDE 0.9% IVPB SCH (12:00)
[2022-03-02] MEDS ORDERED: IFOSFAMIDE IVPB SCH (12:00)
[2022-03-02 12:48] LABS: Hemoglobin A1c 5.3 % (4.0-6.0)
[2022-03-02 12:51] LABS: #Eosinphils 0.1 thou/uL (0.0-0.7); #Lymphocytes 2.7 thou/uL (1.20-3.40); #Monocytes 1.4 thou/uL (0.11-0.59); #Neutrophils 10.1 thou/uL (1.40-6.50); %Basophils 0.3 % (0.0-1.0); %Eosinophils 0.6 % (0.0-10.0); %Lymphocytes 18.7 % (21.0-51.0); %Monocytes 9.8 % (0.0-10.0); %Neutrophils 70.6 % (42.0-75.0); Hemoglobin 11.5 g/dL (14.0-18.0); Mean Corpuscular Hemoglobin 32.4 pg (27.0-31.0); Mean Corpuscular Volume 95.2 fL (78.0-98.0); Mean Platelet Volume 7.3 fL (7.4-10.4); Platelet Count 224 thou/uL (130-400); RBC Distribution Width 19.1 % (11.5-14.5); Red Blood Cell (RBC) Count 3.55 mill/uL (4.70-6.10); White Blood Cell (WBC) Count 14.3 thou/uL (4.8-10.8)
[2022-03-02] MEDS ORDERED: Metoclopramide HCl 10 MG TAB PO SCH (13:00)
[2022-03-02 13:20] LABS: ALT (SGPT) 14 U/L (8-55); AST (SGOT) 13 U/L (5-34); Alkaline Phosphatase 96 U/L (40-110); Anion Gap 12 mmol/L (10-20); BUN (Urea Nitrogen) 19 mg/dL (8.9-20.6); Bilirubin, Total 0.3 mg/dL (0.2-1.2); Calc. Creatinine Clearance 179 mL/min (70-130); Carbon Dioxide 25 mmol/L (22-29); Chloride 105 mmol/L (98-107); Globulin 2.8 g/dL (2.4-3.5); Glucose 82 mg/dL (70-105); Magnesium 1.5 mg/dL (1.6-2.6); Protein, Total 6.8 g/dL (6.0-8.3); Sodium 138 mmol/L (136-145)
[2022-03-02] MEDS ORDERED: Magnesium Sulfate In Water 4 GM in Premix Bag 1 BAG IVPB SCH (14:00)
[2022-03-02] MEDS: SODIUM CHLORIDE 0.9% IV SCH (14:42)
[2022-03-02] MEDS: MANNITOL IV SCH (14:42)
[2022-03-02] MEDS: CISPLATIN IV SCH (14:42)
[2022-03-02] MEDS: SODIUM CHLORIDE 0.9% IVPB SCH ×3 (15:51→23:47)
[2022-03-02] MEDS: ETOPOSIDE IVPB SCH (15:51)
[2022-03-02] MEDS: MESNA IVPB SCH ×2 (17:08→23:47)
[2022-03-02] MEDS ORDERED: Nystatin Cream 15 GM TUBE TOP SCH (21:00)
[2022-03-02] MEDS ORDERED: MORPHINE SULFATE 60 MG PO SCH (21:00)
[2022-03-02] MEDS: Famotidine/PF 20 mg/2ml Vial SLOW IVP SCH ×2 (21:33→22:24)
[2022-03-02] MEDS: Morphine ER 15 MG TAB PO SCH ×2 (21:33→22:24)
[2022-03-02] MEDS: Famotidine 20 MG TAB PO SCH (21:33)
[2022-03-02 21:52] LABS: Bacteria/HPF None Seen HPF (None Seen); Bilirubin Negative (Negative); Blood, Urine Negative (Negative); Clarity Clear (Clear); Glucose, Urine (Dipstick) 70 mg/dL (Negative); Ketone, Urine 10 mg/dL (Negative); Leukocyte Negative Leu/uL (Negative); Nitrite Negative (Negative); Protein, Urine (Dipstick) Negative (Neg-Trace); RBC/HPF 0-3 HPF (0-3); Specific Gravity, Urine 1.014 (1.002-1.036); Squamous Epithelial None Seen HPF (0-3); Urobilinogen Normal mg/dL (Less than 2); WBC/HPF 0-3 HPF (0-3)
[2022-03-02] MEDS: Nystatin Cream 15 GM TUBE TOP SCH (22:25)
[2022-03-03] MEDS: Metoclopramide HCl 10 MG TAB PO PRN (01:08)
[2022-03-03] MEDS: MESNA IVPB SCH ×3 (03:51→20:52)
[2022-03-03] MEDS: SODIUM CHLORIDE 0.9% IVPB SCH ×4 (03:51→20:52)
[2022-03-03 04:33] LABS: ALT (SGPT) 15 U/L (8-55); AST (SGOT) 13 U/L (5-34); Albumin 4.3 g/dL (3.5-5.0); Alkaline Phosphatase 101 U/L (40-110); Anion Gap 10 mmol/L (10-20); BUN (Urea Nitrogen) 12 mg/dL (8.9-20.6); Bilirubin, Total 0.4 mg/dL (0.2-1.2); Calc. Creatinine Clearance 174 mL/min (70-130); Calcium 9.4 mg/dL (7.8-10.44); Carbon Dioxide 24 mmol/L (22-29); Chloride 108 mmol/L (98-107); Globulin 3.1 g/dL (2.4-3.5); Glucose 157 mg/dL (70-105); Magnesium 2.3 mg/dL (1.6-2.6); Potassium 4.8 mmol/L (3.5-5.1); Protein, Total 7.4 g/dL (6.0-8.3); Sodium 137 mmol/L (136-145)
[2022-03-03 04:40] LABS: #Eosinphils 0.1 thou/uL (0.0-0.7); #Lymphocytes 1.3 thou/uL (1.20-3.40); #Monocytes 0.1 thou/uL (0.11-0.59); #Neutrophils 16.7 thou/uL (1.40-6.50); %Basophils 0.2 % (0.0-1.0); %Eosinophils 0.8 % (0.0-10.0); %Lymphocytes 7.2 % (21.0-51.0); %Monocytes 0.7 % (0.0-10.0); %Neutrophils 91.1 % (42.0-75.0); Hemoglobin 11.9 g/dL (14.0-18.0); Mean Corpuscular HGB CONC 33.4 g/dL (32.0-36.0); Mean Corpuscular Hemoglobin 32.3 pg (27.0-31.0); Mean Corpuscular Volume 96.7 fL (78.0-98.0); Mean Platelet Volume 7.2 fL (7.4-10.4); Platelet Count 269 thou/uL (130-400); RBC Distribution Width 19.2 % (11.5-14.5); Red Blood Cell (RBC) Count 3.69 mill/uL (4.70-6.10); White Blood Cell (WBC) Count 18.4 thou/uL (4.8-10.8)
[2022-03-03] MEDS ORDERED: Ondansetron 2MG/ML MDV 10 MG, Dexamethasone Sod Phosphate 20 MG in Sodium Chloride 0.9%... IVP SCH (09:00)
[2022-03-03] MEDS: Famotidine/PF 20 mg/2ml Vial SLOW IVP SCH ×2 (09:42→20:53)
[2022-03-03] MEDS: Famotidine 20 MG TAB PO SCH ×2 (09:46→20:52)
[2022-03-03] MEDS: Nystatin Cream 15 GM TUBE TOP SCH ×2 (09:47→21:10)
[2022-03-03] MEDS: Enoxaparin Sodium 40 MG/0.4 ML SYRINGE SC SCH (09:47)
[2022-03-03] MEDS: Morphine ER 15 MG TAB PO SCH ×2 (11:48→20:53)
[2022-03-03] MEDS: SODIUM CHLORIDE 0.9% IV SCH (11:58)
[2022-03-03] MEDS: CISPLATIN IV SCH (11:58)
[2022-03-03] MEDS: MANNITOL IV SCH (11:58)
[2022-03-03] MEDS: ETOPOSIDE IVPB SCH (13:18)
[2022-03-03] MEDS: IFOSFAMIDE IVPB SCH (14:20)
[2022-03-03] MEDS ORDERED: Baclofen 10 MG TAB PO SCH (23:15)
[2022-03-04] MEDS: MESNA IVPB SCH ×4 (00:45→23:59)
[2022-03-04] MEDS: SODIUM CHLORIDE 0.9% IVPB SCH ×5 (00:45→23:59)
[2022-03-04 09:04] LABS: ALT (SGPT) 12 U/L (8-55); AST (SGOT) 9 U/L (5-34); Alkaline Phosphatase 87 U/L (40-110); Anion Gap 13 mmol/L (10-20); BUN (Urea Nitrogen) 17 mg/dL (8.9-20.6); Bilirubin, Total 0.3 mg/dL (0.2-1.2); Calc. Creatinine Clearance 166 mL/min (70-130); Calcium 9.5 mg/dL (7.8-10.44); Carbon Dioxide 24 mmol/L (22-29); Chloride 107 mmol/L (98-107); Globulin 2.8 g/dL (2.4-3.5); Glucose 105 mg/dL (70-105); Magnesium 1.6 mg/dL (1.6-2.6); Protein, Total 6.8 g/dL (6.0-8.3); Sodium 140 mmol/L (136-145)
[2022-03-04 09:06] LABS: Hemoglobin 11.3 g/dL (14.0-18.0); Mean Corpuscular HGB CONC 33.7 g/dL (32.0-36.0); Mean Corpuscular Hemoglobin 32.2 pg (27.0-31.0); Mean Corpuscular Volume 95.5 fL (78.0-98.0); Mean Platelet Volume 7.9 fL (7.4-10.4); Platelet Count 245 thou/uL (130-400); RBC Distribution Width 19.7 % (11.5-14.5); Red Blood Cell (RBC) Count 3.51 mill/uL (4.70-6.10)
[2022-03-04] MEDS: Enoxaparin Sodium 40 MG/0.4 ML SYRINGE SC SCH (09:08)
[2022-03-04] MEDS: Famotidine 20 MG TAB PO SCH ×2 (09:08→21:58)
[2022-03-04] MEDS: Famotidine/PF 20 mg/2ml Vial SLOW IVP SCH ×2 (09:12→20:06)
[2022-03-04] MEDS: Nystatin Cream 15 GM TUBE TOP SCH ×2 (09:13→21:58)
[2022-03-04] MEDS: Morphine ER 15 MG TAB PO SCH ×2 (09:13→21:58)
[2022-03-04 09:31] LABS: #Lymphocytes 1.5 thou/uL (1.20-3.40); #Monocytes 2.2 thou/uL (0.11-0.59); #Neutrophils 15.2 thou/uL (1.40-6.50); %Basophils 0.1 % (0.0-1.0); %Eosinophils 0.2 % (0.0-10.0); %Monocytes 11.5 % (0.0-10.0); %Neutrophils 80.2 % (42.0-75.0); Anisocytosis SLIGHT = 6-15 cells (100X) (0-5/hpf); Band 31 % (5-11); Lymphocytes 10 % (21-51); MDiff Complete? YES; Monocytes 13 % (0-10); Myelocyte 1 % (0-0); Neutrophil 45 % (42-75); Platelet Morphology Comment Appears Adequate; Polychromasia SLIGHT = 2-3 cells (100X) (0-2/hpf)
[2022-03-04] MEDS: Ondansetron 2MG/ML MDV 10 MG, Dexamethasone Sod Phosphate 20 MG in Sodium Chloride 0.9%... IVPB SCH (10:19)
[2022-03-04] MEDS: CISPLATIN IV SCH (11:24)
[2022-03-04] MEDS: SODIUM CHLORIDE 0.9% IV SCH (11:24)
[2022-03-04] MEDS: MANNITOL IV SCH (11:24)
[2022-03-04] MEDS: ETOPOSIDE IVPB SCH (12:36)
[2022-03-04] MEDS: IFOSFAMIDE IVPB SCH (13:49)
[2022-03-04] MEDS: Acetaminophen 325 MG TAB PO PRN (19:07)
[2022-03-05] MEDS: Acetaminophen 325 MG TAB PO PRN ×2 (00:06→17:24)
[2022-03-05] MEDS ORDERED: Baclofen 10 MG TAB PO SCH (00:15)
[2022-03-05 04:52] LABS: #Lymphocytes 1.6 thou/uL (1.20-3.40); #Monocytes 1.2 thou/uL (0.11-0.59); #Neutrophils 7.9 thou/uL (1.40-6.50); %Basophils 0.1 % (0.0-1.0); %Eosinophils 0.4 % (0.0-10.0); %Lymphocytes 15.2 % (21.0-51.0); %Monocytes 11.1 % (0.0-10.0); %Neutrophils 73.3 % (42.0-75.0); Hemoglobin 11.7 g/dL (14.0-18.0); Mean Corpuscular HGB CONC 33.8 g/dL (32.0-36.0); Mean Corpuscular Hemoglobin 32.5 pg (27.0-31.0); Mean Corpuscular Volume 96.2 fL (78.0-98.0); Mean Platelet Volume 8.2 fL (7.4-10.4); Platelet Count 248 thou/uL (130-400); RBC Distribution Width 19.7 % (11.5-14.5); Red Blood Cell (RBC) Count 3.59 mill/uL (4.70-6.10); White Blood Cell (WBC) Count 10.7 thou/uL (4.8-10.8)
[2022-03-05 05:06] LABS: ALT (SGPT) 13 U/L (8-55); AST (SGOT) 10 U/L (5-34); Alkaline Phosphatase 75 U/L (40-110); Anion Gap 13 mmol/L (10-20); BUN (Urea Nitrogen) 16 mg/dL (8.9-20.6); Bilirubin, Total 0.3 mg/dL (0.2-1.2); Calc. Creatinine Clearance 170 mL/min (70-130); Calcium 9.4 mg/dL (7.8-10.44); Carbon Dioxide 26 mmol/L (22-29); Chloride 103 mmol/L (98-107); Glucose 91 mg/dL (70-105); Magnesium 1.5 mg/dL (1.6-2.6); Sodium 138 mmol/L (136-145)
[2022-03-05] MEDS: Famotidine/PF 20 mg/2ml Vial SLOW IVP SCH ×2 (08:43→21:06)
[2022-03-05] MEDS: Morphine ER 15 MG TAB PO SCH ×2 (08:49→21:04)
[2022-03-05] MEDS: Enoxaparin Sodium 40 MG/0.4 ML SYRINGE SC SCH (08:54)
[2022-03-05] MEDS: Famotidine 20 MG TAB PO SCH ×2 (08:54→21:06)
[2022-03-05] MEDS: Nystatin Cream 15 GM TUBE TOP SCH ×2 (08:54→21:07)
[2022-03-05] MEDS: Ondansetron 2MG/ML MDV 10 MG, Dexamethasone Sod Phosphate 20 MG in Sodium Chloride 0.9%... IVPB SCH (10:21)
[2022-03-05] MEDS: SODIUM CHLORIDE 0.9% IV SCH (11:22)
[2022-03-05] MEDS: MANNITOL IV SCH (11:22)
[2022-03-05] MEDS: CISPLATIN IV SCH (11:22)
[2022-03-05] MEDS: SODIUM CHLORIDE 0.9% IVPB SCH ×3 (12:41→20:25)
[2022-03-05] MEDS: ETOPOSIDE IVPB SCH (12:41)
[2022-03-05] MEDS: MESNA IVPB SCH ×2 (14:05→20:25)
[2022-03-05] MEDS: IFOSFAMIDE IVPB SCH (14:05)
[2022-03-05] MEDS ORDERED: Pegfilgrastim Onpro 6 MG/0.6 ML SQ SCH (15:30)
[2022-03-06] MEDS: SODIUM CHLORIDE 0.9% IVPB SCH ×4 (00:24→20:21)
[2022-03-06] MEDS: MESNA IVPB SCH ×3 (00:24→20:21)
[2022-03-06] MEDS: Ondansetron PF 4 MG/2 ML Vial IVP PRN ×2 (00:40→20:20)
[2022-03-06] MEDS: Metoclopramide HCl 10 MG TAB PO PRN ×2 (00:40→19:35)
[2022-03-06 05:44] LABS: #Lymphocytes 1.4 thou/uL (1.20-3.40); #Monocytes 0.3 thou/uL (0.11-0.59); #Neutrophils 3.5 thou/uL (1.40-6.50); %Basophils 0.1 % (0.0-1.0); %Eosinophils 0.2 % (0.0-10.0); %Lymphocytes 26.9 % (21.0-51.0); %Monocytes 5.5 % (0.0-10.0); %Neutrophils 67.4 % (42.0-75.0); ALT (SGPT) 13 U/L (8-55); AST (SGOT) 9 U/L (5-34); Albumin 4.1 g/dL (3.5-5.0); Alkaline Phosphatase 72 U/L (40-110); Anion Gap 12 mmol/L (10-20); BUN (Urea Nitrogen) 15 mg/dL (8.9-20.6); Bilirubin, Total 0.4 mg/dL (0.2-1.2); Calc. Creatinine Clearance 168 mL/min (70-130); Calcium 9.4 mg/dL (7.8-10.44); Carbon Dioxide 26 mmol/L (22-29); Chloride 102 mmol/L (98-107); Globulin 2.9 g/dL (2.4-3.5); Glucose 84 mg/dL (70-105); Hemoglobin 12.3 g/dL (14.0-18.0); Magnesium 1.4 mg/dL (1.6-2.6); Mean Corpuscular HGB CONC 33.9 g/dL (32.0-36.0); Mean Corpuscular Hemoglobin 32.8 pg (27.0-31.0); Mean Corpuscular Volume 96.7 fL (78.0-98.0); Mean Platelet Volume 8.1 fL (7.4-10.4); Platelet Count 255 thou/uL (130-400); Platelet Morphology Comment Appears Adequate; Potassium 3.8 mmol/L (3.5-5.1); RBC Distribution Width 19.5 % (11.5-14.5); RBC Morphology Normal; Red Blood Cell (RBC) Count 3.75 mill/uL (4.70-6.10); Sodium 136 mmol/L (136-145); White Blood Cell (WBC) Count 5.2 thou/uL (4.8-10.8)
[2022-03-06] MEDS: Famotidine/PF 20 mg/2ml Vial SLOW IVP SCH ×2 (10:00→20:28)
[2022-03-06] MEDS: Morphine ER 15 MG TAB PO SCH ×2 (10:01→20:21)
[2022-03-06] MEDS: Famotidine 20 MG TAB PO SCH ×2 (10:01→20:21)
[2022-03-06] MEDS: Enoxaparin Sodium 40 MG/0.4 ML SYRINGE SC SCH (10:01)
[2022-03-06] MEDS: Nystatin Cream 15 GM TUBE TOP SCH ×2 (10:02→21:24)
[2022-03-06] MEDS: Ondansetron 2MG/ML MDV 10 MG, Dexamethasone Sod Phosphate 20 MG in Sodium Chloride 0.9%... IVPB SCH (10:03)
[2022-03-06] MEDS: SODIUM CHLORIDE 0.9% IV SCH (10:51)
[2022-03-06] MEDS: MANNITOL IV SCH (10:51)
[2022-03-06] MEDS: CISPLATIN IV SCH (10:51)
[2022-03-06] MEDS: ETOPOSIDE IVPB SCH (12:18)
[2022-03-06] MEDS: IFOSFAMIDE IVPB SCH (13:30)
[2022-03-07 00:06] VITALS: BP 125/81; TEMP 97.8
[2022-03-07] MEDS: MESNA IVPB SCH (00:09)
[2022-03-07] MEDS: SODIUM CHLORIDE 0.9% IVPB SCH (00:09)
[2022-03-07] MEDS ORDERED: PEGFILGRASTIM-JMDB 6 MG/0.6 ML SYRINGE SQ SCH (09:00)
== END 2022-03-07 01:14 | disposition home or self-care (01) | DRG 847 ==
LOC: ONC/OP 11:12 → MSONC 11:17 → ONC/OP 11:54
PROVIDERS: ADMIT Family Medicine; ATTEND Internal Medicine
DX: Z51.11 Encounter for antineoplastic chemotherapy (principal); C78.7 Secondary malignant neoplasm of liver and intrahepatic bile duct; C78.00 Secondary malignant neoplasm of unspecified lung; C78.6 Secondary malignant neoplasm of retroperitoneum and peritoneum; C77.9 Secondary and unspecified malignant neoplasm of lymph node, unspecified; C62.11 Malignant neoplasm of descended right testis; B35.4 Tinea corporis; Z90.49 Acquired absence of other specified parts of digestive tract; Z79.899 Other long term (current) drug therapy
CPT/HCPCS: 36415; 80053; 81001; 83036; 83735; 84443; 85025; 93005; 93010; 96377; J1100; J1453; J1642; J1650; J2150; J2405; J2469; J3475; J3480; J3490; J7030; J7050; J9060; J9181; J9208; J9209; S0028; U0003; U0005

== ENCOUNTER 2022-03-30 15:48 | Inpatient (IN) | payer BC ==
[2022-03-30] MEDS ORDERED: Palonosetron HCl 0.25 MG in Sodium Chloride 0.9% 50 ML IVPB SCH (16:15)
[2022-03-30] MEDS ORDERED: SODIUM CHLORIDE 0.9% IVPB SCH ×3 (16:15→17:15)
[2022-03-30] MEDS ORDERED: Fosaprepitant Dimeglumine 150 MG in Sodium Chloride 0.9% 250 ML 150 ML IVPB SCH (16:15)
[2022-03-30] MEDS ORDERED: IFOSFAMIDE IVPB SCH ×2 (16:15→17:15)
[2022-03-30] MEDS ORDERED: Dexamethasone 20 MG in Sodium Chloride 0.9% 50 ML IVPB SCH (16:15)
[2022-03-30] MEDS ORDERED: MESNA IVPB SCH ×2 (16:30→17:15)
[2022-03-30 16:42] LABS: #Eosinphils 0.1 thou/uL (0.0-0.7); #Lymphocytes 1.9 thou/uL (1.20-3.40); #Monocytes 0.8 thou/uL (0.11-0.59); #Neutrophils 2.7 thou/uL (1.40-6.50); %Basophils 0.8 % (0.0-1.0); %Eosinophils 2.2 % (0.0-10.0); %Lymphocytes 33.1 % (21.0-51.0); %Monocytes 14.9 % (0.0-10.0); Hemoglobin 11.3 g/dL (14.0-18.0); Mean Corpuscular HGB CONC 33.9 g/dL (32.0-36.0); Mean Corpuscular Hemoglobin 34.1 pg (27.0-31.0); Mean Platelet Volume 8.1 fL (7.4-10.4); Platelet Count 262 thou/uL (130-400); RBC Distribution Width 18.4 % (11.5-14.5); Red Blood Cell (RBC) Count 3.33 mill/uL (4.70-6.10); White Blood Cell (WBC) Count 5.6 thou/uL (4.8-10.8)
[2022-03-30 17:06] LABS: ALT (SGPT) 19 U/L (8-55); AST (SGOT) 15 U/L (5-34); Albumin 4.2 g/dL (3.5-5.0); Alkaline Phosphatase 87 U/L (40-110); Anion Gap 16 mmol/L (10-20); BUN (Urea Nitrogen) 17 mg/dL (8.9-20.6); Bilirubin, Total 0.3 mg/dL (0.2-1.2); Calc. Creatinine Clearance 153 mL/min (70-130); Calcium 9.4 mg/dL (7.8-10.44); Carbon Dioxide 24 mmol/L (22-29); Chloride 104 mmol/L (98-107); Estimated GFR 122; Globulin 3.2 g/dL (2.4-3.5); Glucose 89 mg/dL (70-105); Potassium 4.5 mmol/L (3.5-5.1); Protein, Total 7.4 g/dL (6.0-8.3); Sodium 139 mmol/L (136-145)
[2022-03-30] MEDS: MANNITOL IV SCH (21:14)
[2022-03-30] MEDS: CISPLATIN IV SCH (21:14)
[2022-03-30] MEDS: SODIUM CHLORIDE 0.9% IV SCH (21:14)
[2022-03-30] MEDS: ETOPOSIDE IVPB SCH (22:25)
[2022-03-30] MEDS: SODIUM CHLORIDE 0.9% IVPB SCH (22:25)
[2022-03-31] MEDS: MESNA IVPB SCH ×3 (05:57→20:52)
[2022-03-31] MEDS: SODIUM CHLORIDE 0.9% IVPB SCH ×4 (05:57→20:52)
[2022-03-31] MEDS ORDERED: Ondansetron 2MG/ML MDV 10 MG in Sodium Chloride 0.9% 50 ML IVP SCH (06:00)
[2022-03-31] MEDS ORDERED: IFOSFAMIDE IVPB SCH (06:00)
[2022-03-31] MEDS ORDERED: SODIUM CHLORIDE 0.9% IVPB SCH (06:00)
[2022-03-31 06:23] LABS: #Lymphocytes 0.7 thou/uL (1.20-3.40); #Neutrophils 3.2 thou/uL (1.40-6.50); %Eosinophils 0.3 % (0.0-10.0); %Lymphocytes 17.7 % (21.0-51.0); %Monocytes 1.1 % (0.0-10.0); %Neutrophils 80.9 % (42.0-75.0); Mean Corpuscular HGB CONC 33.7 g/dL (32.0-36.0); Mean Corpuscular Hemoglobin 33.6 pg (27.0-31.0); Mean Corpuscular Volume 99.7 fL (78.0-98.0); Mean Platelet Volume 8.1 fL (7.4-10.4); Platelet Count 249 thou/uL (130-400); RBC Distribution Width 18.1 % (11.5-14.5); Red Blood Cell (RBC) Count 3.27 mill/uL (4.70-6.10)
[2022-03-31 06:41] LABS: ALT (SGPT) 18 U/L (8-55); AST (SGOT) 12 U/L (5-34); Albumin 4.3 g/dL (3.5-5.0); Alkaline Phosphatase 93 U/L (40-110); Anion Gap 15 mmol/L (10-20); BUN (Urea Nitrogen) 14 mg/dL (8.9-20.6); Bilirubin, Total 0.5 mg/dL (0.2-1.2); Calc. Creatinine Clearance 144 mL/min (70-130); Calcium 9.3 mg/dL (7.8-10.44); Carbon Dioxide 21 mmol/L (22-29); Chloride 106 mmol/L (98-107); Estimated GFR 114; Globulin 3.1 g/dL (2.4-3.5); Glucose 161 mg/dL (70-105); Potassium 4.2 mmol/L (3.5-5.1); Protein, Total 7.4 g/dL (6.0-8.3); Sodium 138 mmol/L (136-145)
[2022-03-31] MEDS ORDERED: Ondansetron 2MG/ML MDV 10 MG, Dexamethasone Sod Phosphate 20 MG in Sodium Chloride 0.9%... IVP SCH (07:30)
[2022-03-31] MEDS: Ondansetron 2MG/ML MDV 10 MG, Dexamethasone Sod Phosphate 20 MG in Sodium Chloride 0.9%... IVP SCH (16:45)
[2022-03-31] MEDS: SODIUM CHLORIDE 0.9% IV SCH (17:34)
[2022-03-31] MEDS: CISPLATIN IV SCH (17:34)
[2022-03-31] MEDS: MANNITOL IV SCH (17:34)
[2022-03-31] MEDS: ETOPOSIDE IVPB SCH (19:37)
[2022-03-31] MEDS: IFOSFAMIDE IVPB SCH (20:52)
[2022-04-01] MEDS: SODIUM CHLORIDE 0.9% IVPB SCH ×4 (06:24→23:11)
[2022-04-01] MEDS: MESNA IVPB SCH ×3 (06:24→23:11)
[2022-04-01] MEDS: Ondansetron 2MG/ML MDV 10 MG, Dexamethasone Sod Phosphate 20 MG in Sodium Chloride 0.9%... IVP SCH (12:45)
[2022-04-01] MEDS: MANNITOL IV SCH (13:44)
[2022-04-01] MEDS: SODIUM CHLORIDE 0.9% IV SCH (13:44)
[2022-04-01] MEDS: CISPLATIN IV SCH (13:44)
[2022-04-01] MEDS: ETOPOSIDE IVPB SCH (15:17)
[2022-04-01] MEDS: IFOSFAMIDE IVPB SCH (16:35)
[2022-04-02] MEDS: MESNA IVPB SCH ×4 (03:02→23:45)
[2022-04-02] MEDS: SODIUM CHLORIDE 0.9% IVPB SCH ×5 (03:02→23:45)
[2022-04-02 04:46] LABS: #Lymphocytes 1.3 thou/uL (1.20-3.40); #Neutrophils 4.6 thou/uL (1.40-6.50); %Basophils 0.1 % (0.0-1.0); %Eosinophils 0.1 % (0.0-10.0); %Lymphocytes 18.8 % (21.0-51.0); %Monocytes 14.2 % (0.0-10.0); %Neutrophils 66.8 % (42.0-75.0); Hemoglobin 10.6 g/dL (14.0-18.0); Mean Corpuscular HGB CONC 34.5 g/dL (32.0-36.0); Mean Platelet Volume 8.4 fL (7.4-10.4); Platelet Count 247 thou/uL (130-400); RBC Distribution Width 17.9 % (11.5-14.5); Red Blood Cell (RBC) Count 3.02 mill/uL (4.70-6.10); White Blood Cell (WBC) Count 6.8 thou/uL (4.8-10.8)
[2022-04-02 04:57] LABS: ALT (SGPT) 16 U/L (8-55); AST (SGOT) 12 U/L (5-34); Alkaline Phosphatase 77 U/L (40-110); Anion Gap 13 mmol/L (10-20); BUN (Urea Nitrogen) 17 mg/dL (8.9-20.6); Bilirubin, Total 0.4 mg/dL (0.2-1.2); Calc. Creatinine Clearance 134 mL/min (70-130); Calcium 8.8 mg/dL (7.8-10.44); Carbon Dioxide 24 mmol/L (22-29); Chloride 105 mmol/L (98-107); Estimated GFR 105; Globulin 2.9 g/dL (2.4-3.5); Glucose 131 mg/dL (70-105); Potassium 3.7 mmol/L (3.5-5.1); Protein, Total 6.9 g/dL (6.0-8.3); Sodium 138 mmol/L (136-145)
[2022-04-02] MEDS ORDERED: Polyethylene Glycol 3350 17 GM Packet PO PRN (06:46)
[2022-04-02] MEDS: Ondansetron 2MG/ML MDV 10 MG, Dexamethasone Sod Phosphate 20 MG in Sodium Chloride 0.9%... IVP SCH (09:48)
[2022-04-02] MEDS: SODIUM CHLORIDE 0.9% IV SCH (10:22)
[2022-04-02] MEDS: MANNITOL IV SCH (10:22)
[2022-04-02] MEDS: CISPLATIN IV SCH (10:22)
[2022-04-02] MEDS: ETOPOSIDE IVPB SCH (12:03)
[2022-04-02] MEDS: IFOSFAMIDE IVPB SCH (13:16)
[2022-04-02] MEDS: Acetaminophen 500 MG TAB PO PRN (23:42)
[2022-04-03 05:38] LABS: #Lymphocytes 1.2 thou/uL (1.20-3.40); #Monocytes 0.3 thou/uL (0.11-0.59); #Neutrophils 2.3 thou/uL (1.40-6.50); %Basophils 0.2 % (0.0-1.0); %Eosinophils 0.3 % (0.0-10.0); %Lymphocytes 31.5 % (21.0-51.0); %Monocytes 6.8 % (0.0-10.0); %Neutrophils 61.2 % (42.0-75.0); Hemoglobin 10.2 g/dL (14.0-18.0); Mean Corpuscular HGB CONC 33.8 g/dL (32.0-36.0); Mean Corpuscular Hemoglobin 34.1 pg (27.0-31.0); Mean Platelet Volume 8.4 fL (7.4-10.4); Platelet Count 210 thou/uL (130-400); RBC Distribution Width 17.4 % (11.5-14.5); Red Blood Cell (RBC) Count 2.97 mill/uL (4.70-6.10); White Blood Cell (WBC) Count 3.7 thou/uL (4.8-10.8)
[2022-04-03 06:12] LABS: ALT (SGPT) 17 U/L (8-55); AST (SGOT) 12 U/L (5-34); Albumin 4.1 g/dL (3.5-5.0); Alkaline Phosphatase 60 U/L (40-110); Anion Gap 15 mmol/L (10-20); BUN (Urea Nitrogen) 19 mg/dL (8.9-20.6); Bilirubin, Total 0.9 mg/dL (0.2-1.2); Calc. Creatinine Clearance 164 mL/min (70-130); Calcium 9.3 mg/dL (7.8-10.44); Carbon Dioxide 23 mmol/L (22-29); Chloride 102 mmol/L (98-107); Estimated GFR 125; Globulin 2.7 g/dL (2.4-3.5); Glucose 93 mg/dL (70-105); Potassium 3.7 mmol/L (3.5-5.1); Protein, Total 6.8 g/dL (6.0-8.3); Sodium 136 mmol/L (136-145)
[2022-04-03] MEDS: Ondansetron 2MG/ML MDV 10 MG, Dexamethasone Sod Phosphate 20 MG in Sodium Chloride 0.9%... IVP SCH (08:20)
[2022-04-03] MEDS: SODIUM CHLORIDE 0.9% IV SCH (08:57)
[2022-04-03] MEDS: MANNITOL IV SCH (08:57)
[2022-04-03] MEDS: CISPLATIN IV SCH (08:57)
[2022-04-03] MEDS ORDERED: Pegfilgrastim Onpro 6 MG/0.6 ML SQ SCH (09:00)
[2022-04-03] MEDS: SODIUM CHLORIDE 0.9% IVPB SCH ×4 (10:10→22:07)
[2022-04-03] MEDS: ETOPOSIDE IVPB SCH (10:10)
[2022-04-03] MEDS: IFOSFAMIDE IVPB SCH (11:25)
[2022-04-03] MEDS: MESNA IVPB SCH ×3 (11:25→22:07)
[2022-04-03] MEDS: Acetaminophen 500 MG TAB PO PRN (18:03)
[2022-04-03 19:57] VITALS: BP 128/63; TEMP 98.1
[2022-04-04] MEDS ORDERED: PEGFILGRASTIM-JMDB 6 MG/0.6 ML SYRINGE SQ SCH (06:00)
== END 2022-04-03 23:30 | disposition home or self-care (01) | DRG 847 ==
LOC: ONC/OP 15:48 → MSONC 15:53 → ONC/OP 16:00 → MSONC 16:01
PROVIDERS: ADMIT Family Medicine; ATTEND Family Medicine
DX: Z51.11 Encounter for antineoplastic chemotherapy (principal); C62.11 Malignant neoplasm of descended right testis; C78.7 Secondary malignant neoplasm of liver and intrahepatic bile duct; C78.00 Secondary malignant neoplasm of unspecified lung; C78.6 Secondary malignant neoplasm of retroperitoneum and peritoneum; D53.9 Nutritional anemia, unspecified; D64.81 Anemia due to antineoplastic chemotherapy; T45.1X5A Adverse effect of antineoplastic and immunosuppressive drugs, initial encounter; Z79.899 Other long term (current) drug therapy; Z90.49 Acquired absence of other specified parts of digestive tract
CPT/HCPCS: 36415; 80053; 82607; 82746; 84702; 85025; 96377; J1100; J1453; J1642; J2150; J2405; J2469; J2506; J3480; J3490; J7030; J7050; J9060; J9181; J9208; J9209

== ENCOUNTER 2022-04-17 08:46 | Outpatient (CLI) | payer BC ==
[2022-04-17] MEDS ORDERED: Iopamidol 370 76% 100 ML VIAL ONE (10:38)
== END 2022-04-17 08:47 | disposition home or self-care (01) ==
LOC: BICCT 08:46
PROVIDERS: ATTEND Internal Medicine Hematology & Oncology
DX: C62.11 Malignant neoplasm of descended right testis (principal); K76.9 Liver disease, unspecified; N62 Hypertrophy of breast; R91.8 Other nonspecific abnormal finding of lung field
CPT/HCPCS: 71260; 74177; Q9967

== ENCOUNTER 2022-04-20 13:46 | Outpatient (CLI) | payer BC ==
[2022-04-20 14:33] LABS: Bilirubin Neg (Negative); Blood, Urine Negative (Negative); Clarity Clear (Clear); Glucose, Urine (Dipstick) Normal (Negative); Ketone, Urine Negative (Negative); Leukocyte Negative (Negative); Nitrite Negative (Negative); Protein, Urine (Dipstick) Negative (Neg-Trace); Urobilinogen Normal mg/dL (Less than 2)
[2022-04-20 14:40] LABS: Mean Corpuscular HGB CONC 33.1 g/dL (32.0-36.0); Mean Corpuscular Hemoglobin 34.5 pg (27.0-33.0); Mean Corpuscular Volume 104.1 fl (81.2-95.1); Mean Platelet Volume 9.6 fl (7.4-10.4); Platelet Count 344 10x3/uL (150-450); RBC Distribution Width 16.5 % (11.5-14.5); White Blood Cell (WBC) Count 6.8 10x3/uL (3.5-10.5)
[2022-04-20 14:41] LABS: RBC/HPF 0-3 HPF (0-3); Squamous Epithelial 0-3 HPF (0-3); WBC/HPF 0-3 HPF (0-3)
[2022-04-20 14:42] LABS: Bacteria/HPF None Seen HPF (None Seen)
[2022-04-20 14:52] LABS: INR-International Normal Ratio 0.9; PTT 26.2 sec (22.0-33.0); Prothrombin Time 9.8 sec (9.5-12.1)
[2022-04-20 14:59] LABS: Anion Gap 14 mmol/L (10-20); BUN (Urea Nitrogen) 22 mg/dL (8.9-20.6); Calc. Creatinine Clearance 0 mL/min (70-130); Calcium 9.5 mg/dL (7.8-10.44); Carbon Dioxide 21 mmol/L (22-29); Chloride 107 mmol/L (98-107); Estimated GFR 123; Glucose 82 mg/dL (70-105); Potassium 4.7 mmol/L (3.5-5.1); Sodium 137 mmol/L (136-145)
== END 2022-04-20 13:47 | disposition home or self-care (01) ==
LOC: LABBT 13:46
PROVIDERS: ATTEND Urology
DX: Z01.812 Encounter for preprocedural laboratory examination (principal); C62.91 Malignant neoplasm of right testis, unspecified whether descended or undescended; Z20.822 Contact with and (suspected) exposure to COVID-19
CPT/HCPCS: 80048; 81001; 85027; 85610; 85730; 87086; 87811

== ENCOUNTER 2022-04-23 07:18 | Day surgery (SDC) | payer BC ==
[2022-04-21 10:25] VITALS: BMI 25.3
[2022-04-23] MEDS ORDERED: fentaNYL Citrate/PF 100 MCG/2 ML SYRINGE ONE (09:29)
[2022-04-23] MEDS ORDERED: Midazolam HCl 2 mg/2 ml Vial ONE (09:29)
[2022-04-23] MEDS ORDERED: HYDROmorphone 0.5 MG/0.5 ML SYRINGE ONE (09:30)
[2022-04-23] MEDS ORDERED: Bupivacaine 0.25% 10 ML VIAL ONE (09:34)
[2022-04-23] MEDS ORDERED: Neomycin-Polymyxin 1 ML AMP ONE (09:34)
[2022-04-23] MEDS ORDERED: Sodium Chloride 0.9% 100 ML ONE (09:46)
[2022-04-23] MEDS ORDERED: CEFAZOLIN 2 GM VIAL ONE (09:46)
[2022-04-23] MEDS ORDERED: Dexamethasone 20 MG/5 ML VIAL ONE (09:54)
[2022-04-23] MEDS ORDERED: Ketorolac Tromethamine 30 MG/ML VIAL ONE (09:54)
[2022-04-23] MEDS ORDERED: Ondansetron PF 4 MG/2 ML Vial ONE (09:54)
[2022-04-23] MEDS ORDERED: PROPOFOL 200 MG/20 ML VIAL ONE (09:54)
[2022-04-23] MEDS ORDERED: Lidocaine 1% PF 5 ML VIAL ONE (09:54)
[2022-04-23] MEDS ORDERED: ePHEDrine 50 MG/ML VIAL ONE (09:54)
== END 2022-04-23 13:50 | disposition home or self-care (01) ==
LOC: SDC 07:18
PROVIDERS: ATTEND Urology
PROC: 0VR Male Reproductive System, Replacement (ICD-10-PCS; principal; 2022-04-23)
DX: C62.11 Malignant neoplasm of descended right testis (principal); C78.00 Secondary malignant neoplasm of unspecified lung; C78.1 Secondary malignant neoplasm of mediastinum; C78.6 Secondary malignant neoplasm of retroperitoneum and peritoneum
CPT/HCPCS: 88309; 88323; C1776; J0690; J1100; J1170; J1885; J2250; J2405; J2704; J3370; J3490; S0020

== ENCOUNTER 2022-12-14 10:58 | Outpatient (CLI) | payer BC ==
[~2022-12-14 10:58] MED LIST changes: -CISPLATIN IV SCH; +Iopamidol-370 76% 500 ML MDV (1 ML CHARGE) ONE; -MANNITOL IV SCH; -PALONOSETRON HCL 0.05 MG/ML 5 ML VIAL IVP SCH; -SODIUM CHLORIDE 0.9% IV SCH
== END 2022-12-14 10:59 | disposition home or self-care (01) ==
LOC: NM 10:58
PROVIDERS: ATTEND Internal Medicine Hematology & Oncology
DX: C62.11 Malignant neoplasm of descended right testis (principal)
CPT/HCPCS: 71260; 74177; 78306; A9503

== ENCOUNTER 2023-05-19 08:45 | Day surgery (SDC) | payer BC ==
[2023-05-19 10:27] LABS: #Eosinphils 0.2 thou/uL (0.0-0.7); #Monocytes 0.4 thou/uL (0.11-0.59); #Neutrophils 2.6 thou/uL (1.40-6.50); %Basophils 0.6 % (0.0-1.0); %Eosinophils 3.5 % (0.0-10.0); %Monocytes 7.9 % (0.0-10.0); %Neutrophils 53.8 % (42.0-75.0); Hematocrit 37.8 % (42.0-52.0); Hemoglobin 12.3 g/dL (14.0-18.0); Mean Corpuscular HGB CONC 32.5 g/dL (32.0-36.0); Mean Corpuscular Hemoglobin 28.4 pg (27.0-31.0); Mean Corpuscular Volume 87.3 fl (78.0-98.0); Mean Platelet Volume 10.2 fL (7.4-10.4); Platelet Count 223 10x3/uL (130-400); Red Blood Cell (RBC) Count 4.33 mill/uL (4.70-6.10); White Blood Cell (WBC) Count 4.8 10x3/uL (4.8-10.8)
[2023-05-19 10:48] LABS: Prothrombin Time 13.2 sec (12.0-14.7)
== END 2023-05-19 14:00 | disposition home or self-care (01) ==
LOC: CT 08:45
PROVIDERS: ATTEND Internal Medicine Hematology & Oncology
PROC: 0FB13ZX Excision of Right Lobe Liver, Percutaneous Approach, Diagnostic (ICD-10-PCS; principal; 2023-05-19)
DX: C62.11 Malignant neoplasm of descended right testis (principal); C78.7 Secondary malignant neoplasm of liver and intrahepatic bile duct; R93.2 Abnormal findings on diagnostic imaging of liver and biliary tract; K76.89 Other specified diseases of liver
CPT/HCPCS: 47000; 77012; 85025; 85610; 85730; 88307; 88333; 88334

== ENCOUNTER 2023-08-03 15:41 | Outpatient (CLI) | payer BC | END 2023-08-03 15:42 | disposition home or self-care (01) | LOC: ULT 15:41 | PROVIDERS: ATTEND Urology | DX: C62.91 Malignant neoplasm of right testis, unspecified whether descended or undescended (principal); N43.3 Hydrocele, unspecified; I86.1 Scrotal varices; T83.9XXA Unspecified complication of genitourinary prosthetic device, implant and graft, initial encounter | CPT/HCPCS: 76870; 93976 ==